=== PATIENT | female | born 1975 ===

== ENCOUNTER 2024-06-27 05:00 | Day surgery (SDC) | payer OTHER ==
[2024-06-21 10:02] LABS: URINE APPEARANCE Clear; URINE BILIRRUBIN Negative (NEGATIVE); URINE BLOOD Trace; URINE COLOR Yellow; URINE GLUCOSE Negative (NEGATIVE); URINE KETONE Trace (NEGATIVE); URINE LEUKOCYTE Negative; URINE NITRATE Negative; URINE PROTEIN Negative (NEGATIVE); URINE UROBILINOGEN 0.2 E.U./dl
[2024-06-21 10:06] LABS: URINE BACTERIA 30.5 uL (0.0-1933); URINE EPITHELIAL CELLS 3.3 uL (0.0-38.8); URINE RBC 4.1 uL (0.0-20.8)
[2024-06-21 10:08] LABS: HEMATOCRIT 37.5 % (36.0-45.00); MEAN CELL VOLUME 87.4 fL (80.00-100.00); MEAN CORPUSCULAR HEMOGLOBIN 30.3 pg (27.00-32.0); MEAN CORPUSCULAR HGB CONC 34.6 g/dl (32.0-36.0); PLATELET COUNT 290 K/uL (150-450); RED BLOOD COUNT 4.29 M/uL (4.00-6.00); RED CELL DISTRIBUTION WIDTH 13.7 % (11.5-14.5)
[2024-06-21 10:13] LABS: URINE WBC 0.7 uL (0.0-23.2)
[2024-06-21 10:21] LABS: INR < 0.93; PARTIAL THROMBOPLASTIN TIME 27.1 SECONDS (22.0-34.0); PROTHROMBIN TIME 10.2 SECONDS (9.0-11.5)
[2024-06-21 10:35] VITALS: BP 117/78
[2024-06-21 10:58] LABS: ALBUMIN 3.9 gm/dL (3.4-5.0); BILIRUBIN TOTAL 0.47 mg/dL (0.3-1.2); CALCIUM 8.7 mg/dL (8.5-10.1); CREATININE SERUM 0.64 mg/dL (0.55-1.02); GFR 99.04; GLOBULINA 2.7 G/DL (2.4-3.5); POTASSIUM 4.53 mEq/L (3.5-5.1); TOTAL PROTEIN 6.6 gm/dL (6.4-8.2)
[~2024-06-27] VITALS: Ht 162.6 cm; Wt 61.2 kg
[~2024-06-27 05:00] MED LIST: MULTIPLE VITAM1 EAC2 PO
[2024-06-27] MEDS ORDERED: POVIDONE-IODINE 118 ML BOTT TOP ONE (07:47)
[2024-06-27] MEDS ORDERED: CEFAZOLIN SODIUM 1,000 MG VIAL ONE (07:48)
[2024-06-27] MEDS ORDERED: DOXYCYCLINE HY100 MG PO (09:10)
[2024-06-27] MEDS ORDERED: NAPR500T14 PO (09:11)
== END 2024-06-27 11:40 | disposition home or self-care (01) ==
LOC: CIR.AMB 05:00
PROVIDERS: ATTEND Obstetrics & Gynecology
DX: D25.0 Submucous leiomyoma of uterus (principal); N92.0 Excessive and frequent menstruation with regular cycle; N84.0 Polyp of corpus uteri; Z88.6 Allergy status to analgesic agent; Z88.2 Allergy status to sulfonamides